=== PATIENT | male | born 1940 | race Caucasian/White ===

== ENCOUNTER 2018-06-05 19:21 | Outpatient (REF) | payer MEDICARE, MEDICAID, SELFPAY ==
[2018-06-05 20:13] LABS: Hemoglobin A1C 6.1 % (4.5-6.2)
[2018-06-08 10:54] LABS: Lyme Ab w Rflx to Lyme Confirm Negative
== END 2018-06-05 19:41 ==
LOC: NCHCN 19:21
PROVIDERS: PCP Internal Medicine; Visit Provider Internal Medicine
DX: R73.9 Hyperglycemia, unspecified (principal); M25.50 Pain in unspecified joint
CPT/HCPCS: 83036; 86618

== ENCOUNTER 2018-08-10 12:57 | Outpatient (REF) | payer MEDICARE, MEDICAID, SELFPAY ==
[2018-08-10 21:25] LABS: Abs Immature Grans 0.01 k/cumm (0.0-0.09); Absolute Basophil Count 0.03 k/cumm (0.0-0.2); Absolute Lymphocyte Count 0.87 k/cumm (1.2-3.4); Absolute Monocyte Count 0.61 k/cumm (0.11-0.7); Absolute Neutrophil Count 5.43 k/cumm (1.2-6.7); Basophils % 0.4; Eosinophils % 5.4; HCT 38.9 % (40.0-50.0); HGB 12.5 g/dL (13.5-17.5); Immature Grans % 0.1; Lymphocytes % 11.8; Mean Corp. HGB Concentration 32.1 g/dL (32.0-36.0); Mean Corpuscular Hemoglobin 32.5 pg (27.0-33.0); Mean Platelet Volume 10.1 fL (8.0-11.0); Monocytes % 8.3; Platelet Count 282 x1000/uL (130-400); RBC 3.85 m/cumm (4.50-6.00); RBC Distribution Width 14.2 % (11.8-14.1); Reticulocyte 1.2 % (0.5-2.4); White Blood Cell Count 7.35 k/cumm (4.4-10.8)
[2018-08-10 21:30] LABS: C-Reactive Protein 0.29 mg/dL (0.0-0.3)
[2018-08-12 13:06] LABS: Albumin 58.3 % (55.8-66.1); Total Protein 6.3 g/dl (6.3-8.2)
== END 2018-08-10 13:17 ==
LOC: NCHCN 12:57
PROVIDERS: PCP Internal Medicine; Visit Provider Internal Medicine
DX: D64.9 Anemia, unspecified (principal)
CPT/HCPCS: 84165; 85025; 85045; 86140

== ENCOUNTER 2019-05-07 10:47 | Outpatient (REF) | payer MEDICARE, MEDICAID, SELFPAY ==
[2019-05-10 12:44] LABS: Lyme Ab w Rflx to Lyme Confirm Negative
[2019-05-10 23:21] LABS: Anaplasma phagocytophilum Negative (Negative); B. miyamotoi PCR Negative (Negative); Babesia divergens/MO-1 Negative (Negative); Babesia duncani Negative (Negative); Babesia microti Negative (Negative); Ehrlichia chaffeensis Negative (Negative); Ehrlichia ewingii/canis Negative (Negative); Ehrlichia muris eauclairensis Negative (Negative)
== END 2019-05-07 11:07 ==
LOC: NCHCN 10:47
PROVIDERS: Family Medicine; PCP Internal Medicine; Visit Provider Internal Medicine
DX: M25.50 Pain in unspecified joint (principal)
CPT/HCPCS: 87798; 86618

== ENCOUNTER 2022-05-02 15:26 | Outpatient (REF) | payer MEDICARE, MEDICAID, SELFPAY ==
[2022-05-02 15:07] LABS: Abs Immature Grans 0.01 10^3/uL (0.0-0.06); Absolute Basophil Count 0.04 10^3/uL (0.0-0.2); Absolute Eosinophil Count 0.22 10^3/uL (0.0-0.7); Absolute Lymphocyte Count 0.93 10^3/uL (1.2-3.4); Absolute Monocyte Count 0.89 10^3/uL (0.1-0.8); Absolute Neutrophil Count 4.66 10^3/uL (1.2-6.7); Basophils % 0.6; Eosinophils % 3.3; HCT 38.7 % (40.0-50.0); HGB 13.1 g/dL (13.5-17.5); Immature Grans % 0.1; Lymphocytes % 13.8; MCH 32.5 pg (27.0-33.0); MCHC 33.9 % (32.0-36.0); MCV 96 fL (80-95); MPV 9.9 fL (8.0-11.0); Monocytes % 13.2; Platelet Count 220 10^3/uL (130-400); RBC 4.03 10^6/uL (4.36-5.78); RDW 13.2 % (11.8-14.1); RDW-SD 45.9 fL; WBC 6.75 10^3/uL (4.4-10.8)
[2022-05-02 15:12] LABS: ESR 8 mm/hr (0-20)
[2022-05-02 15:52] LABS: ALT 28 U/L (16-63); AST 25 U/L (15-37); Albumin 3.8 g/dL (3.4-5.0); Alkaline Phosphatase 63 U/L (46-116); Anion Gap 7.6 mmol/L (3-11); BUN 22 mg/dL (7-18); Bilirubin, Total 0.8 mg/dL (0.2-1.0); CO2 25.4 mmol/L (21.0-32.0); Calcium 8.5 mg/dL (8.5-10.1); Chloride 103 mmol/L (98-107); Glucose 99 mg/dL (74-106); Potassium 4.5 mmol/L (3.5-5.1); Sodium 136 mmol/L (136-145); Total Protein 6.7 g/dL (6.4-8.2)
[2022-05-03 11:27] LABS: Lyme Ab w Rflx to Lyme Confirm Negative (Negative)
[2022-05-07 16:00] LABS: Anaplasma phagocytophilum Negative (Negative); B. miyamotoi PCR Negative (Negative); Babesia divergens/MO-1 Negative (Negative); Babesia duncani Negative (Negative); Babesia microti Negative (Negative); Ehrlichia chaffeensis Negative (Negative); Ehrlichia ewingii/canis Negative (Negative); Ehrlichia muris eauclairensis Negative (Negative)
== END 2022-05-02 15:27 | disposition home or self-care (01) ==
LOC: NCHCN 15:26
PROVIDERS: PCP Internal Medicine; Visit Provider Internal Medicine
DX: R73.03 Prediabetes (principal); M25.50 Pain in unspecified joint
CPT/HCPCS: 80053; 85652; 87798; 83036; 85025; 86618

== ENCOUNTER 2023-10-08 18:27 | Outpatient (REF) | payer MEDICARE, MEDICAID, SELFPAY ==
[2023-10-08 17:59] LABS: ESR 5 mm/hr (0-20)
[2023-10-08 18:00] LABS: HCT 36.2 % (40.0-50.0); HGB 12.3 g/dL (13.5-17.5); MCH 33.6 pg (27.0-33.0); MCV 99 fL (80-95); MPV 10.3 fL (8.0-11.0); Platelet Count 227 10^3/uL (130-400); RBC 3.66 10^6/uL (4.36-5.78); RDW 13.9 % (11.8-14.1); RDW-SD 50.2 fL; WBC 5.82 10^3/uL (4.4-10.8)
[2023-10-08 18:26] LABS: ALT 18 U/L (16-63); AST 18 U/L (15-37); Albumin 3.8 g/dL (3.4-5.0); Alkaline Phosphatase 62 U/L (46-116); Anion Gap 8.3 mmol/L (3-11); BUN 24 mg/dL (7-18); Bilirubin, Total 0.5 mg/dL (0.2-1.0); CO2 23.7 mmol/L (21.0-32.0); CREATININE 1.2 mg/dL (0.70-1.30); Calcium 9.2 mg/dL (8.5-10.1); Chloride 107 mmol/L (98-107); Estimated GFR 60.38 (mL/min/1.73m2); Glucose 117 mg/dL (74-106); Potassium 4.2 mmol/L (3.5-5.1); Sodium 139 mmol/L (136-145); Total Protein 6.6 g/dL (6.4-8.2)
== END 2023-10-08 18:28 | disposition home or self-care (01) ==
LOC: NCHCN 18:27
PROVIDERS: PCP Internal Medicine; Visit Provider Family Medicine
DX: R73.03 Prediabetes (principal); M35.3 Polymyalgia rheumatica
CPT/HCPCS: 80053; 85027; 85652

== ENCOUNTER 2024-04-21 17:04 | Outpatient (REF) | payer MEDICARE, MEDICAID, SELFPAY ==
[2024-04-21 17:26] LABS: Abs Immature Grans 0.01 10^3/uL (0.0-0.06); Absolute Basophil Count 0.04 10^3/uL (0.0-0.2); Absolute Eosinophil Count 0.87 10^3/uL (0.0-0.7); Absolute Lymphocyte Count 1.02 10^3/uL (1.2-3.4); Absolute Monocyte Count 0.81 10^3/uL (0.1-0.8); Absolute Neutrophil Count 2.64 10^3/uL (1.2-6.7); Basophils % 0.7 %; Eosinophils % 16.1 %; HCT 36.4 % (40.0-50.0); HGB 12.3 g/dL (13.5-17.5); Immature Grans % 0.2 %; Lymphocytes % 18.9 %; MCH 33.5 pg (27.0-33.0); MCHC 33.8 % (32.0-36.0); MCV 99 fL (80-95); MPV 9.9 fL (8.0-11.0); Neutrophils % 49.1 %; Platelet Count 222 10^3/uL (130-400); RBC 3.67 10^6/uL (4.36-5.78); RDW 12.7 % (11.8-14.1); RDW-SD 46.4 fL; WBC 5.39 10^3/uL (4.4-10.8)
[2024-04-21 17:37] LABS: Iron 105 ug/dL (65-175); Total Iron Binding Capacity 299 ug/dL (250-450); Transferrin Sat 35 % (20-55)
[2024-04-21 18:02] LABS: Anion Gap 9.8 mmol/L (3-11); BUN 27 mg/dL (7-18); CO2 25.2 mmol/L (21.0-32.0); CREATININE 1.5 mg/dL (0.70-1.30); Chloride 104 mmol/L (98-107); Estimated GFR 46.19 (mL/min/1.73m2); Ferritin 51 ng/mL (26-388); Folate 7.2 ng/mL (8.6-20.0); Glucose 99 mg/dL (74-106); Magnesium 1.9 mg/dL (1.8-2.4); Potassium 4.4 mmol/L (3.5-5.1); Sodium 139 mmol/L (136-145); TSH (W/Ref FT4) 2.85 uIU/mL (0.36-3.74); Vitamin B12 517 pg/mL (193-986)
[2024-04-23 14:11] LABS: Albumin 61.9 % (55.8-66.1); Albumin g/dL 4.3 g/dL (3.6-5.2); Total Protein 6.9 g/dL (6.3-8.2)
== END 2024-04-21 17:05 | disposition home or self-care (01) ==
LOC: NCHCN 17:04
PROVIDERS: PCP Internal Medicine; Visit Provider Family Medicine
DX: D64.9 Anemia, unspecified (principal); E83.42 Hypomagnesemia; G62.9 Polyneuropathy, unspecified
CPT/HCPCS: 80048; 82607; 82728; 82746; 83540; 83550; 83735; 84165; 84443; 85025

== ENCOUNTER 2024-06-01 21:54 | Outpatient (REF) | payer MEDICARE, MEDICAID, SELFPAY ==
[2024-06-01 21:53] LABS: Abs Immature Grans 0.01 10^3/uL (0.0-0.06); Absolute Basophil Count 0.03 10^3/uL (0.0-0.2); Absolute Eosinophil Count 0.34 10^3/uL (0.0-0.7); Absolute Lymphocyte Count 1.21 10^3/uL (1.2-3.4); Absolute Neutrophil Count 3.02 10^3/uL (1.2-6.7); Basophils % 0.6 %; Eosinophils % 6.4 %; HCT 37.2 % (40.0-50.0); HGB 12.3 g/dL (13.5-17.5); Immature Grans % 0.2 %; Lymphocytes % 22.8 %; MCH 33.1 pg (27.0-33.0); MCHC 33.1 % (32.0-36.0); MCV 100 fL (80-95); Monocytes % 13.2 %; Neutrophils % 56.8 %; Platelet Count 226 10^3/uL (130-400); RBC 3.72 10^6/uL (4.36-5.78); RDW-SD 47.6 fL; WBC 5.31 10^3/uL (4.4-10.8)
[2024-06-01 22:16] LABS: Anion Gap 9.3 mmol/L (3-11); BUN 19 mg/dL (7-18); CO2 25.7 mmol/L (21.0-32.0); CREATININE 1.1 mg/dL (0.70-1.30); Calcium 9.3 mg/dL (8.5-10.1); Chloride 106 mmol/L (98-107); Estimated GFR 67.02 (mL/min/1.73m2); Folate 12.2 ng/mL (8.6-20.0); Glucose 94 mg/dL (74-106); Potassium 4.2 mmol/L (3.5-5.1); Sodium 141 mmol/L (136-145)
== END 2024-06-01 21:55 | disposition home or self-care (01) ==
LOC: NCHCN 21:54
PROVIDERS: PCP Internal Medicine; Visit Provider Family Medicine
DX: E53.8 Deficiency of other specified B group vitamins (principal)
CPT/HCPCS: 80048; 82746; 85025

== ENCOUNTER 2025-06-01 12:43 | Outpatient (REF) | payer MEDICARE, MEDICAID, SELFPAY ==
[2025-06-01 14:32] LABS: Abs Immature Grans 0.01 10^3/uL (0.0-0.06); HCT 36.3 % (40.0-50.0); HGB 12.5 g/dL (13.5-17.5); Immature Grans % 0.2 %; MCH 33.1 pg (27.0-33.0); MCHC 34.4 % (32.0-36.0); MCV 96 fL (80-95); MPV 9.6 fL (8.0-11.0); Platelet Count 214 10^3/uL (130-400); RBC 3.78 10^6/uL (4.36-5.78); RDW 13.6 % (11.8-14.1); RDW-SD 48.2 fL; WBC 4.86 10^3/uL (4.4-10.8)
[2025-06-01 14:42] LABS: ESR 11 mm/hr (0-20)
[2025-06-01 14:44] LABS: Hemoglobin A1C 5.7 % (<5.7)
[2025-06-01 14:49] LABS: ALT 22 U/L (16-63); AST 20 U/L (15-37); Albumin 3.8 g/dL (3.4-5.0); Alkaline Phosphatase 70 U/L (46-116); Anion Gap 9.5 mmol/L (3-11); BUN 23 mg/dL (7-18); Bilirubin, Total 1.0 mg/dL (0.2-1.0); CO2 26.5 mmol/L (21.0-32.0); Calcium 9.0 mg/dL (8.5-10.1); Calculated LDL 84 mg/dL (<100); Chloride 104 mmol/L (98-107); Cholesterol 162 mg/dL (<200); Estimated GFR 66.61 (mL/min/1.73m2); Glucose 101 mg/dL (74-106); HDL Cholesterol 60 mg/dL (>or=40); Potassium 4.0 mmol/L (3.5-5.1); Sodium 140 mmol/L (136-145); Total Protein 6.7 g/dL (6.4-8.2); Triglyceride 94 mg/dL (<150)
[2025-06-02 10:17] LABS: NT-proBNP 84 pg/mL (<300)
== END 2025-06-01 12:44 | disposition home or self-care (01) ==
LOC: NCHCN 12:43
PROVIDERS: PCP Internal Medicine; Visit Provider Family Medicine
DX: I25.110 Atherosclerotic heart disease of native coronary artery with unstable angina pectoris (principal); R73.03 Prediabetes; R60.0 Localized edema; D64.9 Anemia, unspecified; M35.3 Polymyalgia rheumatica
CPT/HCPCS: 80053; 80061; 85652; 83036; 83880; 85025

== ENCOUNTER 2025-06-06 12:05 | Outpatient (REF) | payer MEDICARE, MEDICAID, SELFPAY ==
[2025-06-06 15:18] LABS: Folate 10.1 ng/mL (8.6-20.0); Vitamin B12 611 pg/mL (193-986)
== END 2025-06-06 12:06 | disposition home or self-care (01) ==
LOC: NCHCN 12:05
PROVIDERS: PCP Internal Medicine; Visit Provider Family Medicine
DX: E53.8 Deficiency of other specified B group vitamins (principal)
CPT/HCPCS: 82607; 82746